=== PATIENT | male | born 1960 | race Caucasian/White ===

== ENCOUNTER 2017-10-10 19:56 | Emergency (ER) | payer OTHER, BC ==
[~2017-10-10 19:56] MED LIST: ATOR20TA22 PO; CYC10 PO; IBU800 PO; LOR5 PO; LOR7.5/325 PO; METO-733 PO; NITR0.4T3 SL; NO MEDS; PIOG15TA66 PO; SITA1TAB13 PO; TES75PMPPT TD; VALS160T20 PO; ZOLP-350 PO
--- NOTE | 2017-10-10 20:14 | ER Report ---
History and Physical Time Seen By MD: 20:13 Hx. of Stated Complaint: around 1800 patient started having neck pain and then it stared ratiating to his right side of his upper face around his eyebrow; patient states that before 1800 this he was working out at the gym HPI/ROS CHIEF COMPLAINT: Headache, neck pain, right facial numbness and burning HISTORY OF PRESENT ILLNESS: 57-year-old male presents a the ER with symptoms that onset after he was at the gym working out. Patient denies doing any exercise to excess. He did not do anything is unusual for him. He shortly thereafter began to develop right facial burning and numbness. He's developed pain in his right neck. He's wondering if he strained a muscle. He notes increased pain with movement of his right neck. And elevation of his right shoulder. Patient notes no visual changes, no speech changes. He denies any numbness, tingling or weakness in any of his extremities. He notes burning, facial numbness in the right side of his face extending into was forehead. He denies placing his neck in any awkward positions or twisting or doing head or neck rolls. REVIEW OF SYSTEMS: Respiratory: No cough, no dyspnea. Cardiovascular: No chest pain, no palpitations. Gastrointestinal: No vomiting, no abdominal pain. Musculoskeletal: No back pain. Allergies: Coded Allergies: No Known Drug Allergies (Verified , 10/10/17) Home Meds Active Scripts Cyclobenzaprine Hcl (CYCLOBENZAPRINE HCL) 10 Mg Tablet, 10 MG PO TID Y for muscle spasm relief, #20 TAB TAKE 1 TABLET BY MOUTH THREE TIMES A DAY Prov:TAWNYA RENO DO 10/10/17 Oxycodone Hcl/Acetaminophen (PERCOCET 5-325 MG TABLET) 1 Each Tablet, 1-2 EACH PO Q4-6H Y for PAIN, #15 Prov:TAWNYA ERNO DO 10/10/17 Reported Medications Testosterone (ANDROGEL) 75 Gm Gel, 1 PACK TD QDAY, GEL 08/09/16 Sitagliptin Phos/Metformin Hcl (Janumet 50-500 Mg Tablet) 1 Udtab Tablet, 1 TAB PO BID, 0 Refills 03/21/10 Cyclobenzaprine Hcl (Flexeril) 10 Mg Tab, 10 MG PO PRN, 0 Refills 03/21/10 Zolpidem Tartrate (Ambien) 10 Mg Tablet, 10 MG PO QHS Y, 0 Refills 03/21/10 Discontinued Reported Medications Pioglitazone Hcl (PIOGLITAZONE HCL) 15 Mg Tablet, 15 MG PO QDAY 08/09/16 Atorvastatin Calcium (Lipitor) 20 Mg Tablet, 20 MG PO QDAY, 0 Refills 03/21/10 Past Medical/Surgical History Hypertension, type II diabetes, low testosterone Reviewed Nurses Notes: Yes Old Medical Records Reviewed: Yes Hx Smoking: Yes (1 PPD X 35 YRS ) Smoking Status: Current: Every Day Smoker Hx Substance Use Disorder: No Hx Alcohol Use: No Constitutional Vital Sign - Last 24 Hours 10/10/17 10/10/17 10/10/17 10/10/17 20:01 20:39 20:56 21:00 Temp 98.7 Pulse 84 87 Resp 19 B/P (MAP) 154/95 140/79 (99) 128/75 (92) Pulse Ox 94 92 O2 Delivery Room Air 10/10/17 10/10/17 10/10/17 10/10/17 21:45 21:50 22:00 22:20 Pulse 72 80 B/P (MAP) 141/88 (105) 144/88 (106) Pulse Ox 94 94 10/10/17 10/10/17 22:25 22:30 Pulse 72 B/P (MAP) 144/92 (109) Pulse Ox 92 Physical Exam General Appearance: The patient is alert, has no immediate need for airway protection and no current signs of toxicity. Vital signs stable, afebrile, pulse ox normal, HEENT: Pupils equal and round no injection. TMs normal, oropharynx without redness or exudate, mucous membranes are moist Respiratory: Chest is non tender, lungs are clear to auscultation. No chest wall tenderness Cardiac: regular rate and rhythm Gastrointestinal: Abdomen is soft and non tender, no masses, bowel sounds normal. Musculoskeletal: Neck: Neck is supple and non tender. No bruits on auscultation There is tenderness to the right paraspinous muscles and trapezius region. Extremities have full range of motion and are non tender. No edema, no calf tenderness Skin: No rashes or lesions. Neuro: Alert and oriented 3, cranial nerves II through XII intact motor 5/5 all groups, sensory intact to light touch 4 DIFFERENTIAL DIAGNOSIS: After history and physical exam differential diagnosis was considered for headache including but not limited to subarachnoid hemorrhage , migraine headache, tension headache and infectious causes such as meningitis, pharyngitis and sinusitis. Cervical strain, carotid dissection, basilar artery injury, aneurysm Medical Decision Making Data Points Result Diagram: 10/10/17202310/10/172023 Laboratory Hematology Test 10/10/17 20:24 Red Blood Count 5.05 M/uL (4.00-5.60) Mean Corpuscular Volume 95.5 fL (80.0-96.0) Mean Corpuscular Hemoglobin 33.6 pg (26.0-33.0) Mean Corpuscular Hemoglobin Concent 35.2 g/dL (32.0-36.0) Red Cell Distribution Width 13.6 % (11.5-14.5) Mean Platelet Volume 8.8 fL (7.2-11.1) Neutrophils (%) (Auto) 60.6 % (39.4-72.5) Lymphocytes (%) (Auto) 28.3 % (17.6-49.6) Monocytes (%) (Auto) 8.3 % (4.1-12.4) Eosinophils (%) (Auto) 2.0 % (0.4-6.7) Basophils (%) (Auto) 0.8 % (0.3-1.4) Nucleated RBC Relative Count (auto) 0.0 /100WBC Neutrophils # (Auto) 7.4 K/uL (2.0-7.4) Lymphocytes # (Auto) 3.5 K/uL (1.3-3.6) Monocytes # (Auto) 1.0 K/uL (0.3-1.0) Eosinophils # (Auto) 0.2 K/uL (0.0-0.5) Basophils # (Auto) 0.1 K/uL (0.0-0.1) Nucleated RBC Absolute Count (auto) 0.00 K/uL Prothrombin Time 13.6 seconds (12.0-14.4) Prothromb Time International Ratio 1.04 Activated Partial Thromboplast Time 28 seconds (23-35) Sodium Level 140 mmol/L (137-145) Potassium Level 3.6 mmol/L (3.5-5.0) Chloride Level 101 mmol/L (98-107) Carbon Dioxide Level 25 mmol/L (22-30) Blood Urea Nitrogen 17 mg/dl (9-21) Creatinine 0.90 mg/dl (0.66-1.25) Glomerular Filtration Rate Calc > 60.0 Random Glucose 154 mg/dl (75-110) Calcium Level 9.0 mg/dl (8.4-10.2) Total Bilirubin 0.4 mg/dl (0.2-1.3) Aspartate Amino Transf (AST/SGOT) 18 U/L (0-35) Alanine Aminotransferase (ALT/SGPT) 36 U/L (0-56) Alkaline Phosphatase 83 U/L (0-126) Troponin I < 0.012 ng/ml B-Type Natriuretic Peptide 7 pg/ml (0-100) Total Protein 7.3 gm/dl (6.3-8.2) Albumin 4.0 g/dl (3.5-5.0) Chemistry Test 10/10/17 20:24 White Blood Count 12.2 k/uL (4.5-11.0) Red Blood Count 5.05 M/uL (4.00-5.60) Hemoglobin 17.0 g/dL (14.0-18.0) Hematocrit 48.3 % (42.0-52.0) Mean Corpuscular Volume 95.5 fL (80.0-96.0) Mean Corpuscular Hemoglobin 33.6 pg (26.0-33.0) Mean Corpuscular Hemoglobin Concent 35.2 g/dL (32.0-36.0) Red Cell Distribution Width 13.6 % (11.5-14.5) Platelet Count 204 K/uL (150-450) Mean Platelet Volume 8.8 fL (7.2-11.1) Neutrophils (%) (Auto) 60.6 % (39.4-72.5) Lymphocytes (%) (Auto) 28.3 % (17.6-49.6) Monocytes (%) (Auto) 8.3 % (4.1-12.4) Eosinophils (%) (Auto) 2.0 % (0.4-6.7) Basophils (%) (Auto) 0.8 % (0.3-1.4) Nucleated RBC Relative Count (auto) 0.0 /100WBC Neutrophils # (Auto) 7.4 K/uL (2.0-7.4) Lymphocytes # (Auto) 3.5 K/uL (1.3-3.6) Monocytes # (Auto) 1.0 K/uL (0.3-1.0) Eosinophils # (Auto) 0.2 K/uL (0.0-0.5) Basophils # (Auto) 0.1 K/uL (0.0-0.1) Nucleated RBC Absolute Count (auto) 0.00 K/uL Prothrombin Time 13.6 seconds (12.0-14.4) Prothromb Time International Ratio 1.04 Activated Partial Thromboplast Time 28 seconds (23-35) Glomerular Filtration Rate Calc > 60.0 Calcium Level 9.0 mg/dl (8.4-10.2) Total Bilirubin 0.4 mg/dl (0.2-1.3) Aspartate Amino Transf (AST/SGOT) 18 U/L (0-35) Alanine Aminotransferase (ALT/SGPT) 36 U/L (0-56) Alkaline Phosphatase 83 U/L (0-126) Troponin I < 0.012 ng/ml B-Type Natriuretic Peptide 7 pg/ml (0-100) Total Protein 7.3 gm/dl (6.3-8.2) Albumin 4.0 g/dl (3.5-5.0) Coagulation Test 10/10/17 20:24 Prothrombin Time 13.6 seconds Prothromb Time International Ratio 1.04 Activated Partial Thromboplast Time 28 seconds EKG/Imaging EKG Interpretation 12 lead EK Rhythm: normal sinus rhythm [place]: Left axis deviation QRS: normal ST segments: normal, no evidence of ischemia or dysrhythmia Imaging X-ray: Single view portable chest x-ray was obtained. I viewed the images myself on the PACS system. My interpretation of the images is: No infiltrate, no effusion, normal mediastinum. The radiologist interpretation had no clinically significant variation from this interpretation. Results: CT scan of the head was obtained. The results of the study are Head CT scan without contrast COMPARISONS: None ADDITIONAL PERTINENT HISTORY: Severe headache with right facial numbness and burning TECHNIQUE: Multiple axial images were obtained from the skull base to the vertex without IV contrast. One of the following dose optimization techniques was utilized in the performance of this exam: Automated exposure control; adjustment of the mA and/or kV according to the patient's size; or use of an iterative reconstruction technique. Specific details can be referenced in the facility's radiology CT exam operational policy. FINDINGS: Midline shift: Negative Ventricles: Negative Brain parenchyma: Negative Extra-axial spaces: Negative Intracranial vasculature: Negative Osseous structures: Negative Paranasal sinuses and mastoid air cells: Mild mucosal thickening involving both maxillary sinuses. Otherwise negative Surrounding soft tissues and orbits: Negative IMPRESSION: Normal head CT scan without contrast. The study was read by the radiologist. I viewed the images myself on the PACS system. Results: CT scan of the CTA carotid arteries was obtained. The results of the study are CTA of the neck with and without contrast Comparisons: None Additional pertinent history: Severe headache with right facial numbness and burning TECHNIQUE: Multiple axial images were obtained from the superior mediastinum through the mid portion of the brain during the continuous infusion of iodinated contrast. 2-D and 3-D reformatted images were obtained off the axial source data. Degrees of stenosis of the cervical internal carotid arteries were obtained using NASCET criteria. One of the following dose optimization techniques was utilized in the performance of this exam: Automated exposure control; adjustment of the mA and/or kV according to the patient's size; or use of an iterative reconstruction technique. Specific details can be referenced in the facility's radiology CT exam operational policy. CONTRAST: 75 mL of Isovue-370 FINDINGS: Thoracic aortic arch/origins of the great vessels: Negative Vertebral arteries: Patient is right vertebral dominant. Vertebral arteries have a normal appearance. Common carotid arteries: Negative Carotid artery bifurcations: Negative Cervical internal carotid arteries: Negative Visualized intracranial arterial structures: Negative Surrounding soft tissues: Negative Osseous structures: Spondylitic change involving the mid cervical spine. No acute appearing bony abnormalities. Lung apices: Mild atelectatic change involving the lung lung apices. IMPRESSION: 1. Normal CTA of the neck. The study was read by the radiologist. I viewed the images myself on the PACS system. ED Course/Re-evaluation Clinical Indication for ER IV: IV Access ED Course Patient was admitted to an examination room. H&P was done. Patient with a severe headache and neck pain after weight training. Diagnostic evaluation is ordered included a CT angiogram of his neck. His laboratory studies are unremarkable. Patient receives IV pain medications, and Toradol after CT is negative for evidence of hemorrhage. CAT scans of the carotid arteries and neck were unremarkable. Patient's discharged home on a conservative treatment plan. Advised to follow-up with his primary care if unimproved in 3-5 days. Decision to Disposition Date: Oct 10, 2017 Decision to Disposition Time: 22:10 Depart Departure Latest Vital Signs Vital Signs Date Time Temp Pulse Resp B/P (MAP) Pulse Ox O2 Delivery O2 Flow Rate FiO2 10/10/17 22:30 144/92 (109) 10/10/17 22:25 72 92 10/10/17 20:01 98.7 19 Room Air Impression: Primary Impression: Headache Additional Impressions: Cervical strain Type II diabetes mellitus Condition: Improved Disposition: HOME OR SELF-CARE Referrals: [facility]ORT[facility] (PCP) New Scripts Cyclobenzaprine Hcl (CYCLOBENZAPRINE HCL) 10 Mg Tablet 10 MG PO TID Y for muscle spasm relief, #20 TAB TAKE 1 TABLET BY MOUTH THREE TIMES A DAY Prov: TAWNYA RENO DO 10/10/17 Oxycodone Hcl/Acetaminophen (PERCOCET 5-325 MG TABLET) 1 Each Tablet 1-2 EACH PO Q4-6H Y for PAIN, #15 Prov: TAWNYA RENO DO 10/10/17 Patient Instructions: Acute Headache (ED), Cervical Strain (ED) Additional Instructions: Take ibuprofen 200 mg 3 tablets 3 times a day with food Apply heating pad to your neck to help the muscles relax Follow-up with your primary care if unimproved in 3-5 days for further evaluation, referral to physical therapy or further diagnostic studies Problem Qualifiers Primary Impression: Headache Headache type: unspecified Headache chronicity pattern: acute headache Intractability: intractable Qualified Codes: R51 - Headache Additional Impressions: Cervical strain Encounter type: initial encounter Qualified Codes: S16.1XXA - Strain of muscle, fascia and tendon at neck level, initial encounter Type II diabetes mellitus Diabetes mellitus moth exterminator insulin use: without moth exterminator use Diabetes mellitus complication status: without complication Qualified Codes: E11.9 - Type 2 diabetes mellitus without complications TAWNYA RENO DO Oct 10, 2017 20:14
[2017-10-10] MEDS ORDERED: ASPIRIN 81 MG CHEW PO ONE (20:20)
[2017-10-10] MEDS ORDERED: ORPHENADRINE 60MG/2ML INJ IVP ONE (20:20)
[2017-10-10] MEDS ORDERED: fentaNYL CITR 100 MCG/2 ML AMP IVP ONE (20:20)
[2017-10-10] MEDS ORDERED: IOPAMIDOL 76% 75 ML INFUS BTL 75 ML ONE (20:32)
[2017-10-10] MEDS ORDERED: NS 0.9% 150 ML BAG 150 ML ONE (20:32)
--- NOTE | 2017-10-10 20:43 | EKG ---
FACILITY: [facility] - [place] PATIENT NAME: SEBASTIAN THAKKAR : [id number] MR: [id number] V: [id number] EXAM DATE: ORDERING PHYSICIAN: TAWNYA RENO TECHNOLOGIST: RADHA Test Reason : DYSPNEA Blood Pressure : / mmHG Vent. Rate : 077 BPM Atrial Rate : 077 BPM P-R Int : 160 ms QRS Dur : 112 ms QT Int : 366 ms P-R-T Axes : 074 -40 072 degrees QTc Int : 414 ms Normal sinus rhythm with sinus arrhythmia Abnormal ECG When compared with ECG of 07-JAN-2014 21:09, Vent. rate has increased BY 27 BPM Confirmed by AKUA MCKEON ([id number]) on 10/11/2017 6:26:24 AM Referred By: Confirmed By:AKUA MCKEON
[2017-10-10 20:52] LABS: PLATELET COUNT, AUTOMATED 204 K/uL (150-450)
[2017-10-10 21:01] LABS: INR 1.04
[2017-10-10] MEDS ORDERED: HYDROmorphone* 1 MG/ML 1 MG/ML ML IVP ONE (21:55)
--- NOTE | 2017-10-10 22:08 | RADIOLOGY IMAGING REPORT ---
FACILITY: [facility] - [place] PATIENT NAME: George Ellis : 1960 MR: [id number] V: [id number] EXAM DATE: ORDERING PHYSICIAN: TAWNYA RENO TECHNOLOGIST: Location: [facility] Patient: George Ellis : 1960 Visit/Account:[id number] Date of Sevice: 10/10/[address] scan without contrast COMPARISONS: None ADDITIONAL PERTINENT HISTORY: Severe headache with right facial numbness and burning TECHNIQUE: Multiple axial images were obtained from the skull base to the vertex without IV contrast . One of the following dose optimization techniques was utilized in the performance of this exam: Aut omated exposure control; adjustment of the mA and/or kV according to the patient's size; or use of an iterative reconstruction technique. Specific details can be referenced in the facility's radiology CT exam operational policy. FINDINGS: Midline shift: Negative Ventricles: Negative Brain parenchyma: Negative Extra-axial spaces: Negative Intracranial vasculature: Negative Osseous structures: Negative Paranasal sinuses and mastoid air cells: Mild mucosal thickening involving both maxillary sinuses. O therwise negative Surrounding soft tissues and orbits: Negative IMPRESSION: Normal head CT scan without contrast. Report Dictated By: Drew Alvarez MD at 10/10/2017 10:02 PM Report E-Signed By: Drew Alvarez MD at 10/10/2017 10:04 PM WSN:[id number]
--- NOTE | 2017-10-10 22:09 | RADIOLOGY IMAGING REPORT ---
FACILITY: [facility] PATIENT NAME: George Ellis : 1960 MR: [id number] V: [id number] EXAM DATE: ORDERING PHYSICIAN: TAWNYA RENO TECHNOLOGIST: [place] [facility] [place] Patient: George Ellis : 1960 Visit/Account:[id number] Date of Sevice: 10/10/2017 CHEST SINGLE AP COMPARISONS: November 25, 2009 ADDITIONAL PERTINENT HISTORY: Chest pain FINDINGS: Cardiomediastinal silhouette: Negative. Pulmonary vasculature: Negative. Lung barbosa: Minimal bibasilar regions of scarring. Otherwise negative. Pleural spaces: Negative. Osseous structures: Suture anchors about the right humeral head. Surrounding soft tissues: Negative. IMPRESSION: 1. Minimal bibasilar regions of scarring. 2. No evidence of acute cardiopulmonary disease. Report Dictated By: Drew Alvarez MD at 10/10/2017 10:04 PM Report E-Signed By: Drew Alvarez MD at 10/10/2017 10:05 PM WSN:[id number]
--- NOTE | 2017-10-10 22:12 | RADIOLOGY IMAGING REPORT ---
FACILITY: [facility] PATIENT NAME: George Ellis : 1960 MR: [id number] V: [id number] EXAM DATE: ORDERING PHYSICIAN: TAWNYA RENO TECHNOLOGIST: Location: [facility] Patient: George Ellis : 1960 Visit/Account:[id number] Date of Sevice: 10/10/2017 CTA of the neck with and without contrast Comparisons: None Additional pertinent history: Severe headache with right facial numbness and burning TECHNIQUE: Multiple axial images were obtained from the superior mediastinum through the mid portion of the brain during the continuous infusion of iodinated contrast. 2-D and 3-D reformatted images w ere obtained off the axial source data. Degrees of stenosis of the cervical internal carotid arterie s were obtained using NASCET criteria. One of the following dose optimization techniques was utilize d in the performance of this exam: Automated exposure control; adjustment of the mA and/or kV accordi ng to the patient's size; or use of an iterative reconstruction technique. Specific details can be referenced in the facility's radiology CT exam operational policy. CONTRAST: 75 mL of Isovue-370 FINDINGS: Thoracic aortic arch/origins of the great vessels: Negative Vertebral arteries: Patient is right vertebral dominant. Vertebral arteries have a normal appearance . Common carotid arteries: Negative Carotid artery bifurcations: Negative Cervical internal carotid arteries: Negative Visualized intracranial arterial structures: Negative Surrounding soft tissues: Negative Osseous structures: Spondylitic change involving the mid cervical spine. No acute appearing bony abn ormalities. Lung apices: Mild atelectatic change involving the lung lung apices. IMPRESSION: 1. Normal CTA of the neck. Report Dictated By: Drew Alvarez MD at 10/10/2017 10:05 PM Report E-Signed By: Drew Alvarez MD at 10/10/2017 10:09 PM WSN:[id number]
[2017-10-10] MEDS ORDERED: KETOROLAC 30 MG/ML VIAL IVP ONE (22:20)
[2017-10-10 22:30] VITALS: BP 144/92
[2017-10-10] MEDS ORDERED: OXYC-865 PO (22:36)
[2017-10-10] MEDS ORDERED: CYCL10TA29 PO (22:36)
[2017-10-10] MEDS ORDERED: oxyCODONE/ACETAMIN 5/325MG TH 2 TAB/BOTTLE PO ONE (22:40)
== END 2017-10-10 22:56 | disposition home or self-care (01) ==
LOC: ER 20:41
DX: S16.1XXA Strain of muscle, fascia and tendon at neck level, initial encounter (principal); E11.9 Type 2 diabetes mellitus without complications; R94.31 Abnormal electrocardiogram [ECG] [EKG]; I49.9 Cardiac arrhythmia, unspecified
CPT/HCPCS: 70450; 70498; 71045; 83880; 84484; 85025; 85610; 85730; 93005; 96374; 96375; 99284; J1170; J1885; J2360; J3010; Q9967; 82040; 82247; 82310; 82374; 82435; 82565; 82947; 84075; 84132; 84155; 84295; 84450; 84460; 84520

== ENCOUNTER → 2018-04-29 | Outpatient (CLI) | payer OTHER, BC ==
[~2018-04-29] MED LIST changes: +CYCL10TA29 PO; +OXYC-865 PO; -PIOG15TA66 PO; +PIOG15TA67 PO
--- NOTE | 2018-04-29 20:04 | RADIOLOGY IMAGING REPORT ---
[place] [facility] [place] George Ellis : 1960 MR: [id number] V: [id number] EXAM DATE: ORDERING PHYSICIAN: JP CORTES TECHNOLOGIST: Location: [facility] Patient: George Ellis : 1960 Visit/Account:[id number] Date of Sevice: 04/29/2018 Examination: LUMBAR SPINE 2 OR 3 VIEW Comparison: Lumbar spine MRI 04/22/2009 History: Lower limb numbness. Findings: 5 lumbar type vertebral bodies. Vertebral body height and alignment is within normal limit s. Thoracolumbar, facet, and lumbosacral alignment is maintained. Moderate disc space loss at L4-L5 , L5-S1, and to lesser degree L3-L4. Additionally, there is at least moderate degenerative change in volving the L4-5 and L5-S1 facet joints. Sacroiliac joint alignment is within normal limits. No acu te soft tissue abnormality. IMPRESSION: 1. No vertebral body height loss or malalignment. 2. Lumbar spine multilevel moderate degenerative disc disease and facet arthropathy. Report Dictated By: Kian Moya MD at 04/29/2018 7:59 PM Report E-Signed By: Kian Moya MD at 04/29/2018 8:01 PM WSN:[email or web address]
== END ==
LOC: RAD 17:20
PROVIDERS: ATTEND Nurse Practitioner Family
DX: M51.36 Other intervertebral disc degeneration, lumbar region (principal); R20.0 Anesthesia of skin
CPT/HCPCS: 72100

== ENCOUNTER → 2018-05-21 | Outpatient (CLI) | payer OTHER, BC ==
--- NOTE | 2018-05-21 13:37 | RADIOLOGY IMAGING REPORT ---
FACILITY: [facility] PATIENT NAME: George Ellis : 1960 MR: [id number] V: [id number] EXAM DATE: [id number] ORDERING PHYSICIAN: RUSSELL RAPP TECHNOLOGIST: Location: [facility] [place] Patient: George Ellis : 1960 Visit/Account:[id number] Date of Sevice: 05/21/2018 EXAMINATION: MRI Lumbar spine without intravenous contrast HISTORY: Low back pain. Bilateral lower extremity numbness. COMPARISON: Lumbar spine radiographs dated 04/29/2018. Lumbar spine MRI dated 04/22/2009. TECHNIQUE: Multi-planar, multi-sequence lumbar spine MRI was performed without intravenous contrast administration. FINDINGS: Alignment: Mild convex rightward curvature in the lower lumbar spine. Minimal retrolisthesis of L3 ov er L4, L4 over L5, and L5 over S1. Vertebral marrow signal: Mild discogenic bone marrow edema at a few levels. Distal thoracic cord: Negative. Conus: negative, terminates at T12-L1 Cauda equina: Negative. Paravertebral soft tissues: Postsurgical changes in the lower lumbar spine. Otherwise negative. Visualized abdominal and pelvic structures: Negative. Disc Spaces: Lower thoracic spine: Mild bilateral neural foraminal stenosis at T11-T12 secondary to disc bulge and facet hypertrophy. L1-2: Negative. L2-3: Circumferential disc bulge and facet hypertrophy. No significant spinal canal stenosis. Mild bi lateral neural foraminal stenosis. Slightly worsened compared with 2008. L3-4: Left hemilaminectomy. Moderate disc height loss with circumferential disc osteophyte complex an d facet hypertrophy. No significant spinal canal stenosis. Moderate right and moderately severe left neural foraminal stenosis. Postsurgical changes are new and spinal canal stenosis is decreased compar ed with 2009. Disc height loss and neural foraminal stenosis are worsened. L4-5: Moderate disc height loss with circumferential disc osteophyte complex and facet hypertrophy. S uperimposed small left foraminal disc extrusion. Moderate left lateral recess stenosis. Moderate righ t and moderately severe left neural foraminal stenosis. Worsened disc height loss and stenosis compar ed with 2008. L5-S1: Right hemilaminectomy. Moderate disc height loss with circumferential disc osteophyte complex and facet hypertrophy. No significant spinal canal stenosis. Moderately severe bilateral neural gabi inal stenosis. Postsurgical changes are new and right lateral recess stenosis is decreased compared w ith 2009. Disc height loss and neural foraminal stenosis are slightly worsened. IMPRESSION: Multilevel degenerative disc disease and facet hypertrophy with multiple alignment abnorm alities and postsurgical changes at L3-L4 and L5-S1. Report Dictated By: Quirino Morin MD at 05/21/2018 1:23 PM Report E-Signed By: Quirino Morin MD at 05/21/2018 1:32 PM WSN:[email or web address]
== END ==
LOC: MRI 00:53
PROVIDERS: ATTEND Nurse Practitioner Family
DX: M51.36 Other intervertebral disc degeneration, lumbar region (principal); R20.0 Anesthesia of skin; R20.2 Paresthesia of skin
CPT/HCPCS: 72148

== ENCOUNTER → 2018-06-12 | Outpatient (CLI) | payer OTHER, BC ==
--- NOTE | 2018-06-12 12:39 | RADIOLOGY IMAGING REPORT ---
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 FINDINGS: Vertebral body height and alignment: Negative Marrow signal: Negative Vertebral bodies: Negative Thoracic spinal cord signal: Negative Disc spaces: Posterior broad-based disc protrusions along the mid thoracic spine. No significant aby l or neural foraminal narrowing. Canal and neural foramina: Negative Surrounding soft tissues: Negative IMPRESSION: 1. Multilevel spondylitic change. 2. No underlying canal or neural foraminal narrowing. Report Dictated By: Drew Alvarez MD at 06/12/2018 12:31 PM Report E-Signed By: Drew Alvarez MD at 06/12/2018 12:36 PM WSN:[email or web address]
== END ==
LOC: MRI 00:39
PROVIDERS: ATTEND Neurological Surgery
DX: M47.14 Other spondylosis with myelopathy, thoracic region (principal)
CPT/HCPCS: 72146

== ENCOUNTER 2018-06-14 19:58 | Emergency (ER) | payer OTHER, BC ==
--- NOTE | 2018-06-14 20:03 | ER Report ---
History and Physical Time Seen By MD: 20:02 HPI/ROS CHIEF COMPLAINT: Left facial numbness HISTORY OF PRESENT ILLNESS: 58-year-old male presents ambulatory to the ER complaining of left facial numbness for several hours. He notes no visual bush ges, no speech changes. Patient was seen several months ago with right-sided facial numbness had a CT scan which was negative. Patient's been following up with primary care. Patient has left lower extremity weakness. His primary care doctor ordered a lumbar MRI to see if that was the source of his leg numbness and weakness is. REVIEW OF SYSTEMS: Respiratory: No cough, no dyspnea. Cardiovascular: No chest pain, no palpitations. Gastrointestinal: No vomiting, no abdominal pain. Musculoskeletal: No back pain. Allergies: Coded Allergies: No Known Drug Allergies (Verified , 10/10/17) Home Meds Active Scripts Cyclobenzaprine Hcl (CYCLOBENZAPRINE HCL) 10 Mg Tablet, 10 MG PO TID PRN for muscle spasm relief, #20 TAB TAKE 1 TABLET BY MOUTH THREE TIMES A DAY Prov:TAWNYA RENO DO 10/10/17 Oxycodone Hcl/Acetaminophen (PERCOCET 5-325 MG TABLET) 1 Each Tablet, 1-2 EACH PO Q4-6H PRN for PAIN, #15 Prov:TAWNYA RENO DO 10/10/17 Reported Medications Testosterone (ANDROGEL) 75 Gm Gel, 1 PACK TD QDAY, GEL 08/09/16 Sitagliptin Phos/Metformin Hcl (Janumet 50-500 Mg Tablet) 1 Udtab Tablet, 1 TAB PO BID, 0 Refills 03/21/10 Cyclobenzaprine Hcl (Flexeril) 10 Mg Tab, 10 MG PO PRN, 0 Refills 03/21/10 Zolpidem Tartrate (Ambien) 10 Mg Tablet, 10 MG PO QHS PRN, 0 Refills 03/21/10 Reviewed Nurses Notes: Yes Old Medical Records Reviewed: Yes Hx Smoking: Yes (1 PPD X 35 YRS ) Smoking Status: Current: Every Day Smoker Hx Substance Use Disorder: No Hx Alcohol Use: No Constitutional Vital Sign - Last 24 Hours 06/14/18 06/14/18 06/14/18 06/14/18 19:58 20:01 20:02 20:12 Temp 98.5 Pulse ??? 78 Resp 18 B/P (MAP) 138/83 (101) 138/83 147/98 (114) Pulse Ox 96 O2 Delivery Room Air 06/14/18 06/14/18 06/14/18 06/14/18 20:30 20:58 21:03 21:18 Pulse 82 ? B/P (MAP) 130/66 (87) 06/14/18 06/14/18 06/14/18 06/14/18 21:33 21:48 22:00 22:03 Pulse ? B/P (MAP) 135/57 (83) 06/14/18 22:18 Pulse ??? Physical Exam General Appearance: The patient is alert, has no immediate need for airway protection and no current signs of toxicity. Vital signs stable, afebrile, pulse ox normal HEENT: Pupils equal and round no injection. TMs normal, oropharynx without erythema, moist mucous membranes Respiratory: Chest is non tender, lungs are clear to auscultation. Cardiac: regular rate and rhythm, no murmur Gastrointestinal: Abdomen is soft and non tender, no masses, bowel sounds normal. Musculoskeletal: Neck: Neck is supple and non tender. No bruits Extremities have full range of motion and are non tender. No edema, no calf tenderness Skin: No rashes or lesions. Neuro alert and oriented 3, cranial nerves II through XII intact motor 5/5 all groups, sensory intact to light touch 4 DIFFERENTIAL DIAGNOSIS: After history and physical exam differential diagnosis was considered for weakness including but not limited to electrolyte abnormality, depression, anxiety, CVA, spinal cord abnormality, and infectious causes. Medical Decision Making Data Points Result Diagram: 06/14/182021 Laboratory Hematology Test 06/14/18 20:22 Sodium Level 142 mmol/L (137-145) Potassium Level 3.8 mmol/L (3.5-5.0) Chloride Level 108 mmol/L (98-107) Carbon Dioxide Level 25 mmol/L (22-30) Blood Urea Nitrogen 14 mg/dl (9-21) Creatinine 0.70 mg/dl (0.66-1.25) Glomerular Filtration Rate Calc > 60.0 Random Glucose 149 mg/dl (75-110) Calcium Level 9.3 mg/dl (8.4-10.2) Total Bilirubin 0.3 mg/dl (0.2-1.3) Aspartate Amino Transf (AST/SGOT) 14 U/L (0-35) Alanine Aminotransferase (ALT/SGPT) 28 U/L (0-56) Alkaline Phosphatase 74 U/L (0-126) Total Protein 7.3 g/dl (6.3-8.2) Albumin 4.1 g/dl (3.5-5.0) Chemistry Test 06/14/18 20:22 Glomerular Filtration Rate Calc > 60.0 Calcium Level 9.3 mg/dl (8.4-10.2) Total Bilirubin 0.3 mg/dl (0.2-1.3) Aspartate Amino Transf (AST/SGOT) 14 U/L (0-35) Alanine Aminotransferase (ALT/SGPT) 28 U/L (0-56) Alkaline Phosphatase 74 U/L (0-126) Total Protein 7.3 g/dl (6.3-8.2) Albumin 4.1 g/dl (3.5-5.0) EKG/Imaging Imaging Results: MRI of the brain with and without contrast was obtained. The results of the study are MRI Brain with and without contrast Indication: Left facial numbness. Left lower extremity weakness. Comparison: CT head on 10/10/2017. MR brain 10/14/2012. Technique: Sagittal T1-weighted, axial FLAIR, T2-weighted T1-weighted, gradient echo, coronal FLAIR, axial diffusion weighted and ADC map images were obtained through the brain. Axial and coronal T1-weighted fat saturated postcontrast images were also obtained. A total of 15 mL IV MultiHance contrast was administered.. Findings: No intracranial bleed, midline shift, mass, mass effect, extra-axial fluid collection or hydrocephalus. No abnormal signal. Lemos/white matter differentiation appears normal. The vascular flow voids are normal. There are no enhancing lesions or areas of abnormal enhancement. The intracranial vasculature visualized is within normal limits. Sinuses and mastoids visualized show no significant disease. Bilateral globes are intact. IMPRESSION: No acute or focal abnormality. The study was read by the radiologist. I viewed the images myself on the PACS system. ED Course/Re-evaluation ED Course Patient was admitted to an examination room. H&P was done. The differential diagnoses was considered. Patient with left facial numbness. Patient with left lower extremity weakness and numbness. Patient's had MRIs of his thoracic and lumbar spine in the last 2 months which are unremarkable for an etiology. Patient may have MS or demyelinating disease. An MRI of the brain is ordered. The MRI scan is unremarkable. Patient advised to follow-up with his primary care for referral to neurology for peripheral neuropathy evaluation. Decision to Disposition Date: Jun 14, 2018 Decision to Disposition Time: 22:07 Depart Departure Latest Vital Signs Vital Signs Date Time Temp Pulse Resp B/P (MAP) Pulse Ox O2 Delivery O2 Flow Rate FiO2 06/14/18 22:18 ??? 06/14/18 22:00 135/57 (83) 06/14/18 20:02 98.5 18 96 Room Air Impression: Primary Impression: Left facial numbness Condition: Improved Disposition: HOME OR SELF-CARE Referrals: JP CORTES (PCP) Patient Instructions: Peripheral Neuropathy (ED) Additional Instructions: Follow-up with your primary care doctor for further evaluation for potential nerve diseases. TAWNYA RENO DO Jun 14, 2018 20:03
[2018-06-14] MEDS ORDERED: GADOBENATE 529MG/1ML 15ML VIAL IVP ONE (21:03)
[2018-06-14 22:00] VITALS: BP 135/57
--- NOTE | 2018-06-14 22:01 | RADIOLOGY IMAGING REPORT ---
FACILITY: [facility] PATIENT NAME: George Ellis : 1960 MR: [id number] V: [id number] EXAM DATE: ORDERING PHYSICIAN: TAWNYA RENO TECHNOLOGIST: Location: [facility] - [place] Patient: George Ellis : 1960 Visit/Account:[id number] Date of Sevice: 06/14/2018 MRI Brain with and without contrast Indication: Left facial numbness. Left lower extremity weakness. Comparison: CT head on 10/10/2017. MR brain 10/14/2012. Technique: Sagittal T1-weighted, axial FLAIR, T2-weighted T1-weighted, gradient echo, coronal FLAIR, axial diffusion weighted and ADC map images were obtained through the brain. Axial and coronal T1-we ighted fat saturated postcontrast images were also obtained. A total of 15 mL IV MultiHance contrast was administered.. Findings: No intracranial bleed, midline shift, mass, mass effect, extra-axial fluid collection or hydrocephalu s. No abnormal signal. Lemos/white matter differentiation appears normal. The vascular flow voids are normal. There are no enhancing lesions or areas of abnormal enhancement. The intracranial vasculature visualized is within normal limits. Sinuses and mastoids visualized show no significant disease. Bilateral globes are intact. IMPRESSION: No acute or focal abnormality. Report Dictated By: Shalom Arellano at 06/14/2018 9:46 PM Report E-Signed By: Shalom Arellano at 06/14/2018 9:57 PM [id number]
== END 2018-06-14 22:25 | disposition home or self-care (01) ==
LOC: ER 20:18
DX: R20.0 Anesthesia of skin (principal); F17.210 Nicotine dependence, cigarettes, uncomplicated
CPT/HCPCS: 70553; 99284; A9577; 82040; 82247; 82310; 82374; 82435; 82565; 82947; 84075; 84132; 84155; 84295; 84450; 84460; 84520